=== PATIENT | female | born 1985 | race Two or more races ===

== ENCOUNTER 2025-02-22 15:39 | Outpatient (AMB) | payer BC, SELFPAY ==
--- NOTE | 2025-02-22 15:41 | GYNCLNT_ITS ---
Vital Signs 02/22/25 15:48 Height 1.7 m Height Method Stated Weight 73.028 kg Weight Measurement Method Standing Scale BMI 25.2 BP 132/81 H Blood Pressure Source Automatic Cuff Blood Pressure Location Left Upper Arm Position Sitting Respiration 18 Pulse 82 Pulse Source Monitor Temp 97.2 F Temp Source Oral Pulse Oximetry (%) 98 Oxygen Delivery Method Room Air Allergies/Home Meds Allergies & Medications Allergies No Known Allergies Allergy (Mild, Uncoded 10/11/08 08:58) Intake Visit Data Collection New Patient or Established: Established Patient (seen at [facility] within 3 years) Reason for Visit:: REFERRAL Seen by Clinical Staff ONLY (RN/MA): No Internal Combustion Engine Inspector Required: No Do You Feel Safe at Home: Yes Authorities Contacted: N/A PCP or OBGYN visit in last 3 months: Yes Hx Now: No Are you currently on any form of Control: No Last menstrual period: 02/02/25 Pain Present Currently: No Pain Scale Used: Talbert-Damon/Numerical Pain scale:: 0 Smoking Status Smoking Status: Never smoker 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 1. Little interest or pleasure in doing things: not at all 2. Feeling down, depressed, or hopeless: not at all Total score: 0 PHQ-9 3. Trouble falling or staying asleep, or sleeping too much: Not at all 4. Feeling tired or having little energy: Not at all 5. Poor appetite or overeating: Not at all 6. Feeling bad about yourself - or that you are a failure or have let yourself or your family down: Not at all 7. Trouble concentrating on things, such as reading the newspaper or watching television: Not at all 8. Moving or speaking so slowly that other people could have noticed? - Or the opposite - being so fidgety or restless that you have been moving around a lot more than usual: not at all 9. Thoughts that you would be better off or of hurting yourself in some way: Not at all Total score: 0 If you checked off any problems, how difficult have these problems made it for you to do your work, take care of things at home, or get along with other people?: not difficult at all Source: Developed by Drs. Alen Sanchez, Juliet Prescott, Benigno Gonzalez and colleagues, with an educational nikolay from [employer]. Depression screen completed yes Social History Living Situation History Marital Status: Single Lives With: Family Housing: House Tobacco History Smoking Status: Never smoker Second Hand Smoke Exposure: No Alcohol History Alcohol Intake: Never Domestic Abuse History Do You Feel Safe at Home: Yes History of Present Illness HPI Narrative Janina Kaminski is a 39-year-old nulliparous woman presenting on referral for consultation regarding gynecologic problems, including a uterine fibroid, ovarian cysts, and concerns about fertility. Patient reports regular menstrual periods with moderate flow and associated pain. Her last menstrual period was on February 02, 2025, with cycle intervals of about 28 days and episodes lasting 4 to 5 days. She mentions that for the first time in over a month, she did not get her period, which caused her concern. She attributes this to stress at work. Janina is currently sexually active with one partner and is not using any contraception. She expresses concern about the impact of her fibroids and ovarian cysts on her ability to conceive. Patient's had a vasectomy that was reversed in May of the previous year. They are currently trying to conceive but have not undergone any fertility testing since the reversal. Janina reports using ovulation prediction kits about 4-5 months ago and confirms that she was ovulating at that time. Patient's last Pap smear was performed last year and was reported as normal. She does not report any other significant symptoms or health concerns at this time. Obstetric history: A0 L0, not currently . Medical history includes uterine fibroid and ovarian cysts. Patient is , sexually active with one partner, not using contraception, and trying for . Review of systems positive for moderate menstrual flow and dysmenorrhea. Review of Systems Review of Systems Systems Reviewed: All systems reviewed, normal except as documented Exam General General Appearance: alert, in no apparent distress and healthy appearing Head Head exam: atraumatic Neck Neck exam: Present normal inspection and trachea midline Chest Chest inspection: Present normal inspection and symmetric chest wall rise External exam: Present normal external exam; Absent tenderness Neuro Neurological exam: Present oriented X3 Psych Psychiatric exam: Present normal affect and normal mood Results Objective Imaging: Diagnostic Test Results and Labs: - Transvaginal ultrasound (06/01/2024): Uterus: 9.3 cm x 4.3 cm x 6.8 cm Uterine fundal mass: 3.3 cm x 2 cm x 3.2 cm, consistent with fibroadegeneration Endometrial stripe: 0.3 cm Right ovary: 5.6 cm x 3.2 cm x 3.6 cm with arterial flow Cysts: 3.0 cm x 2.3 cm, 2.1 cm x 2 cm, 1.6 cm x 1.2 cm Left ovary: 3.3 cm x 1.9 cm x 1.4 cm with arterial flow Follicular cyst: 19 mm - Pap smear (2023): Normal Office Procedures OB Clinic LOC & Office Proc's Nursing/Assessment Patient Status: Established Patient OB Clinic Nursing Assessment: Medication Reconciliation, Update PMH in EMR and Vital Signs OB Clinic Coordination of Care: Complex Care and Chronic Disease 1-5, Consent,records obtained, informed consent, Lab and Imaging orders, Results/Orders obtained and Staff clarify orders Established Patient Charge Established Patient Point Assignment: 90 Established Patient Point Charge: EP Level 3 (80-115) Assessment & Plan Diagnosis / Problem List (1) Intramural leiomyoma of uterus: Status: Acute (2) Female infertility, unspecified: Status: Acute (3) Unspecified ovarian cyst, left side: Status: Acute (4) Encounter of female for testing for genetic disease carrier status for procreative management: Status: Acute (5) Encounter for fertility testing: Status: Acute Plan Uterine Fibroid: - Order new transvaginal ultrasound to reassess fibroid size and characteristics. - Follow up with ultrasound every 6 months. - Discuss treatment options based on updated imaging results and symptom progression. Ovarian Cysts: - Order new transvaginal ultrasound to reassess ovarian cysts. - Follow up with ultrasound every 6 months. Fertility Concerns: - Order comprehensive hormone panel to assess fertility status. - Recommend patient track menstrual cycles using a calendar or deb. - Advise continued use of ovulation prediction kits mid-cycle (days 12-14). - Recommend obtain semen analysis to assess post-vasectomy reversal sperm count. - Discuss potential for intrauterine insemination if 's sperm count is low. - Consider referral to fertility specialist (Dr. Mcbride in [place]) for further evaluation and possible testicular sperm extraction with intrauterine insemination, if indicated.
[2025-02-22 15:48] VITALS: BP 132/81; PULSE 82; RESP 18; TEMP 36.2; O2SAT 98; BMI 25.2
== END 2025-02-22 16:10 | disposition home or self-care (01) ==
LOC: HODSOBC 15:39
PROVIDERS: PCP Registered Nurse; Referring Provider Registered Nurse; Supervising Provider Obstetrics & Gynecology; Visit Provider Obstetrics & Gynecology
DX: D25.1 Intramural leiomyoma of uterus (principal); N83.202 Unspecified ovarian cyst, left side; N97.9 Female infertility, unspecified; Z31.438 Encounter for other genetic testing of female for procreative management
CPT/HCPCS: 99213; G0463

== ENCOUNTER → 2025-02-22 | Outpatient (CLI) | payer BC, SELFPAY ==
--- NOTE | 2025-02-22 16:20 | XR_ITS ---
Examination: Transvaginal ultrasound of the pelvis, complete Technique: Transvaginal sonographic images pelvis performed using phan scale imaging Exam date and time: February 22, 2025 1437 hours INDICATIONS: Transvaginal pelvic sonogram June 01, 2024 uterine area of fundal fibroid degeneration 3.3 x 3.2 cm FINDINGS: Uterus 8.8 cm endometrial stripe 0.6 cm 2.8 x 2.8 x 2.2 cm area of fibroid degeneration in the fundus Right ovary 3.6 cm arterial flow 19 mm and 20 mm cyst Left ovary 2.1 cm arterial flow IMPRESSION: Uterine area of fibroid degeneration in the fundus, 2.8 x 2.8 x 2.2 cm.
--- NOTE | 2025-02-22 16:20 | XR_ITS ---
Examination: Pelvic ultrasound, transabdominal, complete Technique: Transabdominal ultrasound of the pelvis performed using grayscale imaging Date and time of exam: February 22, 2025 1626 hours INDICATIONS: Uterine and vaginal bleeding this month, history uterine fundal fibroid degeneration 33 mm and transvaginal pelvic sonogram June 01, 2024 FINDINGS: Uterus 7.2 cm endometrial stripe 0.8 cm Uterine fundal mass 2.5 x 2.6 x 3.1 cm Right ovary 4.0 cm arterial flow 22 mm x 20 mm cyst Left ovary 2.6 cm arterial flow IMPRESSION: Uterine area of fibroid degeneration 25 x 26 x 31 mm
== END | disposition home or self-care (01) ==
LOC: CDIM 16:14
PROVIDERS: Referring Provider Obstetrics & Gynecology; Visit Provider Obstetrics & Gynecology
DX: D25.9 Leiomyoma of uterus, unspecified (principal)
CPT/HCPCS: 76830; 76856

== ENCOUNTER 2025-03-18 11:28 | Outpatient (AMB) | payer BC, SELFPAY ==
--- NOTE | 2025-03-18 11:50 | AMB.GYNCLNOT ---
Allergies/Home Meds Allergies & Medications Allergies No Known Allergies Allergy (Mild, Uncoded 10/11/08 08:58) Medication Reconciliation No Known Home Medications 03/18/25 [History Confirmed 03/18/25] Intake Visit Data Collection New Patient or Established: Established Patient (seen at [facility] within 3 years) Reason for Visit:: RESULTS Seen by Clinical Staff ONLY (RN/MA): No Solutions Executive Cloud Sales Required: No Do You Feel Safe at Home: Yes Authorities Contacted: N/A PCP or OBGYN visit in last 3 months: Yes Date of Last PCP or OBGYN visit: 02/22/25 Hx Now: No Are you currently on any form of Control: No Pain Present Currently: No Pain Scale Used: Talbert-Damon/Numerical Pain scale:: 0 Smoking Status Smoking Status: Never smoker For Telemed visit only Telemed Video/Phone Visit: Yes Verbal consent obtained for Telemed visit?: Yes Verbal Consent witness name: LEONARD ARCOS MA / HARI WAN 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 1. Little interest or pleasure in doing things: not at all 2. Feeling down, depressed, or hopeless: not at all Total score: 0 PHQ-9 3. Trouble falling or staying asleep, or sleeping too much: Not at all 4. Feeling tired or having little energy: Not at all 5. Poor appetite or overeating: Not at all 6. Feeling bad about yourself - or that you are a failure or have let yourself or your family down: Not at all 7. Trouble concentrating on things, such as reading the newspaper or watching television: Not at all 8. Moving or speaking so slowly that other people could have noticed? - Or the opposite - being so fidgety or restless that you have been moving around a lot more than usual: not at all 9. Thoughts that you would be better off or of hurting yourself in some way: Not at all Total score: 0 If you checked off any problems, how difficult have these problems made it for you to do your work, take care of things at home, or get along with other people?: not difficult at all Source: Developed by Drs. Alen Sanchez, Juliet Prescott, Benigno Gonzalez and colleagues, with an educational nikolay from [employer]. Depression screen completed yes Social History Living Situation History Lives With: Family Housing: House Tobacco History Smoking Status: Never smoker Second Hand Smoke Exposure: No Alcohol History Alcohol Intake: Never Domestic Abuse History Do You Feel Safe at Home: Yes History of Present Illness HPI Narrative Patient presents via televisit for follow-up regarding fertility concerns. She has a history of a small uterine fibroid and is attempting to conceive. The patient reports no new symptoms or changes in her overall health status. She mentions that her had a vasectomy in the past which has been reversed, but they are unsure of his current sperm count. Janina expresses interest in understanding her fertility status and potential for conception. She inquires about the results of her recent ultrasound and blood tests, particularly concerned about any changes in her fibroid size or other findings that might impact her ability to conceive. She has a small uterine fibroid measuring 2.8 by 2.8 centimeters at the fundus and a right ovarian cyst, 20 mm in size, likely related to ovulation. Her has undergone a vasectomy reversal. The patient is and of reproductive age. Diagnostic Test Results and Labs: - Ultrasound (Date N/A): Uterus: Endometrial stripe 0.6 cm Fibroid: 2.8 x 2.8 cm at fundus Right ovary: 3.6 cm with 20 mm cyst Left ovary: 2.1 cm - Blood tests (Date N/A): FSH: 29 (high; normal <25) AMH: 0.03 (low; normal >1) Tumor markers: Within normal limits CBC: Within normal limits Office Procedures OB Clinic LOC & Office Proc's Nursing/Assessment Patient Status: Established Patient OB Clinic Nursing Assessment: Medication Reconciliation and Update PMH in EMR OB Clinic Coordination of Care: Education Complex Pt/Fam, Consent,records obtained, informed consent, Lab and Imaging orders, Results/Orders obtained and Staff clarify orders Established Patient Charge Established Patient Point Assignment: 70 Telehealth If patient is seen using Teleconference methods, complete New/Est section, but DO NOT obie points only obie the correct Telemed visit type Telemed Phone/Video with patient at home & Dr,PA,SURGICAL SCHEDULER: Yes Assessment & Plan Diagnosis / Problem List (1) Encounter for fertility testing: Status: Acute (2) Encounter of female for testing for genetic disease carrier status for procreative management: Status: Acute (3) Unspecified ovarian cyst, left side: Status: Acute (4) Female infertility, unspecified: Status: Acute (5) Intramural leiomyoma of uterus: Status: Acute Plan Infertility Plan: - Refer to fertility specialist (IVF doctor) for further evaluation and treatment. - Provide contact information for Dr. Lukas Rodrigues and Dr. Cee Rodrigues in [place]. - Recommend couple attends fertility consultation together. - Advise patient to bring copy of current lab results and ultrasound to fertility specialist appointment. - Suggest evaluation of 's post-vasectomy reversal sperm count. Uterine Fibroid Plan: - Continue monitoring with future ultrasounds as part of fertility workup. Ovarian Cyst Plan: - No immediate intervention required. - Follow up as part of overall fertility management.
== END 2025-03-18 11:56 | disposition home or self-care (01) ==
LOC: HODSOBC 11:28
PROVIDERS: Supervising Provider Obstetrics & Gynecology; Visit Provider Obstetrics & Gynecology
DX: Z31.41 Encounter for fertility testing (principal); Z31.430 Encounter of female for testing for genetic disease carrier status for procreative management; N97.9 Female infertility, unspecified; N83.202 Unspecified ovarian cyst, left side; D25.1 Intramural leiomyoma of uterus
CPT/HCPCS: 99212; G0463